=== PATIENT | male | born 1955 | race Caucasian/White ===

== ENCOUNTER → 2016-12-14 | Outpatient (CLI) | payer MEDICAID ==
[2016-12-14 11:42] LABS: Appearance,Urine Clear (Clear); Bilirubin,Urine Negative (Negative); Glucose,Urine (UA) Negative (Negative); Ketones,Urine Negative (Negative); Leukocyte Esterase,Urine Negative (Negative); Nitrite,Urine Negative (Negative); Protein,Urine Negative (Negative); Specific Gravity,Urine 1.008 (1.001-1.035); UA Billing (MACRO vs. MICRO) CHEM; Urobilinogen,Urine <2.0 mg/dL (<2.0)
[2016-12-14 11:47] LABS: Basophils % (A) 1 %; CH 31.9; CHCM 33.5; Eosinophils # (A) 0.1 k/uL (0-0.7); Eosinophils % (A) 2 %; HCT 48.3 % (39.0-53.0); HDW 2.44; HGB 15.7 gm/dL (13.0-17.5); Luc # (Auto) 0.11; Luc % (Auto) 2; Lymphocytes # (A) 1.7 k/uL (1.0-4.8); Lymphocytes % (A) 32 %; MCH 31.2 pg (25.0-35.0); MCHC 32.6 g/dL (31.0-37.0); MCV 95.7 fL (80.0-100.0); Mean Platelet Volume 6.9; Monocytes # (A) 0.3 k/uL (0-1.0); Monocytes % (A) 6 %; Neutrophils # (A) 3.2 k/uL (1.3-7.7); Neutrophils % (A) 58 %; RBC 5.05 m/uL (4.30-5.90); RDW 12.7 % (11.5-15.5); WBC 5.5 k/uL (3.8-10.6); WBC (Perox) 5.72
[2016-12-14 12:12] LABS: Anion Gap 8 mmol/L; Blood Urea Nitrogen 16 mg/dL (9-20); Calcium 9.5 mg/dL (8.4-10.2); Carbon Dioxide 27 mmol/L (22-30); Chloride 106 mmol/L (98-107); Glucose 100 mg/dL (74-99); Iron 98 ug/dL (49-181); Magnesium 2.1 mg/dL (1.6-2.3); Non-African American GFR(MDRD) >60 (>60 ml/min/1.73 sqM); Phosphorous 3.3 mg/dL (2.5-4.5); Potassium 4.7 mmol/L (3.5-5.1); Sodium 141 mmol/L (137-145); Uric Acid 6.3 mg/dL (3.5-8.5)
[2016-12-14 12:15] LABS: Creatinine,Urine Random 65.1 mg/dL
[2016-12-14 12:21] LABS: % Iron Saturation 32.9 % (20-50); Total Iron Binding Capacity 298 ug/dL (261-462)
== END | disposition home or self-care (01) ==
LOC: LABWHC1 11:13
PROVIDERS: ATTEND Internal Medicine Nephrology
DX: R80.9 Proteinuria, unspecified (principal); D64.9 Anemia, unspecified; E55.9 Vitamin D deficiency, unspecified; E21.3 Hyperparathyroidism, unspecified; M10.9 Gout, unspecified; N39.0 Urinary tract infection, site not specified
CPT/HCPCS: 36415; 80048; 81003; 81050; 82306; 82570; 82728; 83540; 83550; 83735; 83970; 84100; 84156; 84550; 85025

== ENCOUNTER → 2017-12-13 | Outpatient (CLI) | payer MEDICAID ==
[2017-12-13 11:17] LABS: Appearance,Urine Clear (Clear); Bilirubin,Urine Negative (Negative); Blood,Urine Negative (Negative); Color,Urine Yellow; Glucose,Urine (UA) Negative (Negative); Ketones,Urine Trace (Negative); Leukocyte Esterase,Urine Negative (Negative); Nitrite,Urine Negative (Negative); Protein,Urine Negative (Negative); Specific Gravity,Urine 1.019 (1.001-1.035); Urobilinogen,Urine <2.0 mg/dL (<2.0)
[2017-12-13 11:22] LABS: Basophils # (A) 0.1 k/uL (0-0.2); Basophils % (A) 1 %; Eosinophils # (A) 0.2 k/uL (0-0.7); Eosinophils % (A) 3 %; HCT 49.1 % (39.0-53.0); HGB 16.4 gm/dL (13.0-17.5); Lymphocytes # (A) 2.2 k/uL (1.0-4.8); Lymphocytes % (A) 37 %; MCHC 33.5 g/dL (31.0-37.0); MCV 92.8 fL (80.0-100.0); Mean Platelet Volume 6.7; Monocytes # (A) 0.3 k/uL (0-1.0); Monocytes % (A) 6 %; Neutrophils % (A) 52 %; Platelet Count 204 k/uL (150-450); RBC 5.29 m/uL (4.30-5.90); RDW 13.8 % (11.5-15.5); WBC 5.9 k/uL (3.8-10.6)
[2017-12-13 11:50] LABS: Albumin 4.3 g/dL (3.5-5.0); Anion Gap 12 mmol/L; Blood Urea Nitrogen 19 mg/dL (9-20); Calcium 9.4 mg/dL (8.4-10.2); Carbon Dioxide 26 mmol/L (22-30); Chloride 103 mmol/L (98-107); Glucose 101 mg/dL (74-99); Magnesium 2.1 mg/dL (1.6-2.3); Potassium 4.9 mmol/L (3.5-5.1); Sodium 141 mmol/L (137-145)
[2017-12-13 13:19] LABS: Collection Time,Urine 24 hrs; Total Volume 24 Hour,Urine 1250 mls (800-1800)
[2017-12-13 13:41] LABS: Total Protein 24 Hour,Urine 113 mg/24hr (42.0-225.0)
[2017-12-13 16:57] LABS: Vitamin D 25 Hydroxy 38.9 ng/mL (30.0-100.0)
[2017-12-13 17:08] LABS: Parathyroid Hormone Intact 54.2 pg/mL (14.0-72.0)
[2017-12-13 17:27] LABS: DNA Double-Stranded NEGATIVE (NEGATIVE)
[2017-12-13 18:19] LABS: Hepatitis C IgG Antibody Non-Reactive (Non-Reactive)
[2017-12-16 15:04] LABS: C-ANCA <1:20 Titer (<1:20); P-ANCA <1:20 Titer (<1:20)
[2017-12-17 12:27] LABS: Albumin 4.08 g/dL (3.80-4.90); Gamma Globulin 0.69 g/dL (0.70-1.50); Protein, Total 6.3 g/dL (6.2-8.2)
== END | disposition home or self-care (01) ==
LOC: LABWHC1 10:39
PROVIDERS: ATTEND Internal Medicine Nephrology
DX: N39.0 Urinary tract infection, site not specified (principal); M10.9 Gout, unspecified; E83.39 Other disorders of phosphorus metabolism; R80.9 Proteinuria, unspecified; K75.9 Inflammatory liver disease, unspecified; N18.2 Chronic kidney disease, stage 2 (mild)
CPT/HCPCS: 36415; 80048; 81003; 81050; 82040; 82306; 82728; 83516; 83540; 83550; 83735; 83970; 84100; 84156; 84165; 84550; 85025; 86038; 86160; 86162; 86225; 86255; 86335; 86803; 87340

== ENCOUNTER → 2018-06-24 | Outpatient (CLI) | payer MEDICAID ==
[2018-06-24 12:09] LABS: Basophils % (A) 1 %; Eosinophils # (A) 0.2 k/uL (0-0.7); Eosinophils % (A) 3 %; HCT 49.5 % (39.0-53.0); HGB 16.2 gm/dL (13.0-17.5); Lymphocytes % (A) 30 %; MCH 30.5 pg (25.0-35.0); MCHC 32.8 g/dL (31.0-37.0); Mean Platelet Volume 6.5; Monocytes # (A) 0.4 k/uL (0-1.0); Monocytes % (A) 6 %; Neutrophils % (A) 60 %; Platelet Count 226 k/uL (150-450); RBC 5.32 m/uL (4.30-5.90); RDW 12.7 % (11.5-15.5); WBC 6.7 k/uL (3.8-10.6)
[2018-06-24 13:17] LABS: Appearance,Urine Clear (Clear); Bilirubin,Urine Negative (Negative); Blood,Urine Negative (Negative); Color,Urine Light Yellow; Glucose,Urine (UA) Negative (Negative); Ketones,Urine Negative (Negative); Leukocyte Esterase,Urine Negative (Negative); Nitrite,Urine Negative (Negative); Protein,Urine Negative (Negative); Specific Gravity,Urine 1.006 (1.001-1.035); Urobilinogen,Urine <2.0 mg/dL (<2.0)
[2018-06-24 16:24] LABS: Albumin 4.5 g/dL (3.80-4.90); Anion Gap 6.2 mmol/L (4.00-12.00); Calcium 9.2 mg/dL (8.7-10.3); Carbon Dioxide 27.8 mmol/L (21.6-31.8); Globulin 1.5 g/dL (2.1-3.7); LDL Cholesterol,Calculated 124.2 mg/dL (0.0-131.0); Potassium 4.5 mmol/L (3.5-5.5); Total Bilirubin 0.5 mg/dL (0.2-1.2); VLDL Calculation 11.8 mg/dL (5.00-40.00)
[2018-06-24 16:33] LABS: T4, Free (Free Thyroxine) 1.2 ng/dL (0.80-1.80)
[2018-06-24 18:57] LABS: Hemoglobin A1C 5.6 % (4.0-6.0)
== END | disposition home or self-care (01) ==
LOC: LABWHC1 11:11
PROVIDERS: ATTEND Internal Medicine Geriatric Medicine
DX: Z00.00 Encounter for general adult medical examination without abnormal findings (principal)
CPT/HCPCS: 36415; 80053; 80061; 81003; 83036; 84153; 84439; 84443; 85025

== ENCOUNTER → 2019-03-05 | Outpatient (CLI) | payer MEDICARE ==
[2019-03-05 11:57] LABS: Basophils % (A) 1 %; Eosinophils # (A) 0.2 k/uL (0-0.7); Eosinophils % (A) 3 %; HCT 48.9 % (39.0-53.0); HGB 16.1 gm/dL (13.0-17.5); Lymphocytes # (A) 2.1 k/uL (1.0-4.8); Lymphocytes % (A) 36 %; MCH 30.5 pg (25.0-35.0); MCHC 32.9 g/dL (31.0-37.0); MCV 92.7 fL (80.0-100.0); Mean Platelet Volume 6.5; Monocytes # (A) 0.4 k/uL (0-1.0); Monocytes % (A) 7 %; Neutrophils # (A) 3.1 k/uL (1.3-7.7); Neutrophils % (A) 53 %; Platelet Count 211 k/uL (150-450); RBC 5.27 m/uL (4.30-5.90); WBC 5.8 k/uL (3.8-10.6)
[2019-03-05 12:31] LABS: Appearance,Urine Clear (Clear); Bilirubin,Urine Negative (Negative); Blood,Urine Negative (Negative); Color,Urine Yellow; Glucose,Urine (UA) Negative (Negative); Ketones,Urine 1+ (Negative); Leukocyte Esterase,Urine Negative (Negative); Nitrite,Urine Negative (Negative); PH, Urine 6.5 (5.0-8.0); Protein,Urine Negative (Negative); Specific Gravity,Urine 1.019 (1.001-1.035); Urobilinogen,Urine <2.0 mg/dL (<2.0)
[2019-03-05 15:42] LABS: African American GFR (CKD) 91.1 (60.0-200.0); Albumin 4.4 g/dL (3.80-4.90); Albumin/Globulin Ratio 2.75 (1.60-3.17); Anion Gap 9.6 mmol/L (4.00-12.00); Calcium 9.2 mg/dL (8.7-10.3); Carbon Dioxide 24.4 mmol/L (21.6-31.8); Globulin 1.6 g/dL (1.6-3.3); LDL Cholesterol,Calculated 137.8 mg/dL (0.0-131.0); Potassium 4.4 mmol/L (3.5-5.5); Total Bilirubin 1.1 mg/dL (0.3-1.2); VLDL Calculation 10.2 mg/dL (5.00-40.00)
[2019-03-05 19:51] LABS: Hemoglobin A1C 5.3 % (4.0-6.0)
== END | disposition home or self-care (01) ==
LOC: LABWHC1 11:07
PROVIDERS: ATTEND Internal Medicine Geriatric Medicine
DX: Z00.00 Encounter for general adult medical examination without abnormal findings (principal); I10 Essential (primary) hypertension; R73.9 Hyperglycemia, unspecified; R80.9 Proteinuria, unspecified
CPT/HCPCS: 36415; 80053; 80061; 81003; 83036; 84436; 84443; 85025

== ENCOUNTER → 2020-01-06 | Outpatient (CLI) | payer MEDICARE ==
--- NOTE | 2020-01-06 13:06 | XR ---
EXAMINATION TYPE: XR shoulder complete LT DATE OF EXAM: 01/06/2020 CLINICAL HISTORY: pain COMPARISON: NONE TECHNIQUE: Three views of the left shoulder are obtained. FINDINGS: There is no acute fracture/dislocation evident. The acromioclavicular and glenohumeral vika int spaces appear within normal limits. The visualized ribs are intact and unremarkable. IMPRESSION: 1. There is no acute fracture or dislocation. ICD 10 NO FRACTURE, INITIAL EVALUATION
== END | disposition home or self-care (01) ==
LOC: RADXRMAIN 12:32
PROVIDERS: ATTEND Internal Medicine Geriatric Medicine
DX: M25.512 Pain in left shoulder (principal)

== ENCOUNTER → 2020-05-17 | Outpatient (CLI) | payer MEDICARE ==
[2020-05-17 15:28] LABS: HCT 52.7 % (39.0-53.0); HGB 17.4 gm/dL (13.0-17.5); MCH 31.8 pg (25.0-35.0); MCV 96.2 fL (80.0-100.0); Mean Platelet Volume 6.7; Platelet Count 232 k/uL (150-450); RBC 5.48 m/uL (4.30-5.90); RDW 12.8 % (11.5-15.5); WBC 8.9 k/uL (3.8-10.6)
[2020-05-17 16:52] LABS: Appearance,Urine Clear (Clear); Bilirubin,Urine Negative (Negative); Blood,Urine Negative (Negative); Color,Urine Light Yellow; Glucose,Urine (UA) Negative (Negative); Ketones,Urine Negative (Negative); Leukocyte Esterase,Urine Negative (Negative); Nitrite,Urine Negative (Negative); Protein,Urine Negative (Negative); Specific Gravity,Urine 1.007 (1.001-1.035); Urobilinogen,Urine <2.0 mg/dL (<2.0)
[2020-05-18 02:59] LABS: African American GFR (CKD) 80.6 (60.0-200.0); Albumin 4.6 g/dL (3.80-4.90); Albumin/Globulin Ratio 2.19 (1.60-3.17); Anion Gap 11.2 mmol/L (4.00-12.00); BUN/Creat Ratio 15.45 Ratio (12.00-20.00); Calcium 9.8 mg/dL (8.7-10.3); Carbon Dioxide 25.8 mmol/L (21.6-31.8); Chol/HDL Ratio 5.07; Globulin 2.1 g/dL (1.6-3.3); LDL Cholesterol,Calculated 218.8 mg/dL (0.0-131.0); Non-African American GFR(CKD) 69.6 (60.0-200.0); Potassium 4.8 mmol/L (3.5-5.5); Total Bilirubin 0.8 mg/dL (0.2-1.2); Total Protein 6.7 g/dL (6.2-8.2); VLDL Calculation 17.2 mg/dL (5.00-40.00)
[2020-05-18 03:08] LABS: Prostate Specific Antigen 4.8 ng/mL (0.0-4.5)
== END | disposition home or self-care (01) ==
LOC: LABWHC1 14:55
PROVIDERS: ATTEND Internal Medicine Geriatric Medicine
DX: E78.5 Hyperlipidemia, unspecified (principal); R80.9 Proteinuria, unspecified; N40.3 Nodular prostate with lower urinary tract symptoms; M79.10 Myalgia, unspecified site
CPT/HCPCS: 36415; 80053; 80061; 81003; 84153; 85027

== ENCOUNTER → 2020-11-22 | Outpatient (CLI) | payer MEDICARE ==
[2020-11-23 00:34] LABS: African American GFR (CKD) 80.6 (60.0-200.0); Albumin 4.8 g/dL (3.80-4.90); Albumin/Globulin Ratio 2.67 (1.60-3.17); Anion Gap 8.9 mmol/L (4.00-12.00); BUN/Creat Ratio 15.45 Ratio (12.00-20.00); Calcium 9.6 mg/dL (8.7-10.3); Carbon Dioxide 25.1 mmol/L (21.6-31.8); Chol/HDL Ratio 3.69; Globulin 1.8 g/dL (1.6-3.3); LDL Cholesterol,Calculated 133.4 mg/dL (0.0-131.0); Non-African American GFR(CKD) 69.6 (60.0-200.0); Potassium 4.6 mmol/L (3.5-5.5); Total Bilirubin 0.8 mg/dL (0.3-1.2); Total Protein 6.6 g/dL (6.2-8.2); VLDL Calculation 14.6 mg/dL (5.00-40.00)
== END | disposition home or self-care (01) ==
LOC: LABWHC1 13:16
PROVIDERS: ATTEND Internal Medicine Geriatric Medicine
DX: E78.2 Mixed hyperlipidemia (principal); I10 Essential (primary) hypertension
CPT/HCPCS: 36415; 80053; 80061

== ENCOUNTER → 2021-05-30 | Outpatient (CLI) | payer MEDICARE ==
[2021-05-30 18:12] LABS: Basophils # (A) 0.04 X 10*3/uL (0.00-0.10); Basophils % (A) 0.5 %; Eosinophils # (A) 0.17 X 10*3/uL (0.04-0.35); Eosinophils % (A) 2.1 %; HCT 49.6 % (39.6-50.0); HGB 16.4 g/dL (13.0-17.0); Lymphocytes # (A) 2.99 X 10*3/uL (0.90-5.00); Lymphocytes % (A) 37.6 %; MCH 31.1 pg (27.0-32.0); MCHC 33.1 g/dL (32.0-37.0); MCV 94.1 fL (80.0-97.0); Mean Platelet Volume 9.7 fL (9.5-12.2); Monocytes # (A) 0.77 X 10*3/uL (0.20-1.00); Monocytes % (A) 9.7 %; Neutrophils # (A) 3.96 X 10*3/uL (1.80-7.70); Neutrophils % (A) 49.7 %; Platelet Count 240 X 10*3/uL (140-440); RBC 5.27 X 10*6/uL (4.40-5.60); RDW 12.4 % (11.5-14.5); WBC 7.96 X 10*3/uL (4.50-10.00)
[2021-05-31 02:15] LABS: VLDL Calculation 13.92 mg/dL (5.00-40.00)
[2021-05-31 04:09] LABS: ALT 22 U/L (10-49); AST 18 U/L (14-35); Albumin 4.7 g/dL (3.8-4.9); Albumin/Globulin Ratio 2.14 (1.60-3.17); Alkaline Phosphatase 64 U/L (41-126); BUN/Creat Ratio 15.32 Ratio (12.00-20.00); Blood Urea Nitrogen 16.7 mg/dL (9.0-27.0); Calcium 9.8 mg/dL (8.7-10.3); Carbon Dioxide 20.9 mmol/L (21.6-31.8); Chloride 104 mmol/L (96-109); Chol/HDL Ratio 4.04 Ratio; Globulin 2.2 g/dL (1.6-3.3); Glucose 98 mg/dL (70-110); LDL Cholesterol,Calculated 146.4 mg/dL (0.0-131.0); Non-African American GFR(CKD) 69.9 (60.0-200.0); Potassium 4.7 mmol/L (3.5-5.5); Sodium 142 mmol/L (135-145); Total Protein 6.8 g/dL (6.2-8.2)
== END | disposition home or self-care (01) ==
LOC: LABWHC1 13:03
PROVIDERS: ATTEND Internal Medicine Geriatric Medicine
DX: N40.0 Benign prostatic hyperplasia without lower urinary tract symptoms (principal); R79.9 Abnormal finding of blood chemistry, unspecified; R80.9 Proteinuria, unspecified
CPT/HCPCS: 36415; 80053; 80061; 83036; 84153; 84443; 85025

== ENCOUNTER → 2021-11-29 | Outpatient (CLI) | payer MEDICARE ==
[2021-11-29 18:17] LABS: ALT 21 U/L (10-49); AST 20 U/L (14-35); African American GFR (CKD) 103.5 (60.0-200.0); Albumin 4.3 g/dL (3.8-4.9); Albumin/Globulin Ratio 1.87 (1.60-3.17); Alkaline Phosphatase 51 U/L (41-126); BUN/Creat Ratio 14.25 Ratio (12.00-20.00); Blood Urea Nitrogen 12.2 mg/dL (9.0-27.0); Calcium 9.3 mg/dL (8.7-10.3); Carbon Dioxide 25.4 mmol/L (20.0-27.5); Chloride 105 mmol/L (96-109); Creatine Kinase 56 U/L (35-257); Globulin 2.3 g/dL (1.6-3.3); Glucose 103 mg/dL (70-110); LDL Cholesterol,Calculated 114.9 mg/dL (0.0-131.0); Non-African American GFR(CKD) 89.3 (60.0-200.0); Potassium 4.5 mmol/L (3.5-5.5); Sodium 139 mmol/L (135-145); Total Protein 6.6 g/dL (6.2-8.2)
[2021-11-29 18:53] LABS: Appearance,Urine Clear (Clear); Bilirubin,Urine Negative (Negative); Blood,Urine Negative (Negative); Color,Urine Yellow (Yellow); Ketones,Urine Negative (Negative); Nitrite,Urine Negative (Negative); Specific Gravity,Urine 1.009 (1.001-1.030); Urobilinogen,Urine 0.2 (0.2,1.0)
== END | disposition home or self-care (01) ==
LOC: LABWHC1 11:33
PROVIDERS: ATTEND Internal Medicine Geriatric Medicine
DX: E78.2 Mixed hyperlipidemia (principal); R80.9 Proteinuria, unspecified
CPT/HCPCS: 36415; 80053; 80061; 81003; 82550

== ENCOUNTER → 2022-04-02 | Outpatient (CLI) | payer MEDICARE | END | disposition home or self-care (01) | LOC: LABWHC1 15:22 | PROVIDERS: ATTEND Urology | DX: C61 Malignant neoplasm of prostate (principal) | CPT/HCPCS: 36415; 84153 ==

== ENCOUNTER → 2022-05-31 | Outpatient (CLI) | payer MEDICARE ==
[2022-05-31 18:14] LABS: Basophils # (A) 0.05 X 10*3/uL (0.00-0.10); Basophils % (A) 0.6 %; Eosinophils # (A) 0.18 X 10*3/uL (0.04-0.35); Eosinophils % (A) 2.3 %; HCT 47.4 % (39.6-50.0); HGB 15.8 g/dL (13.0-17.0); Immature Grans, Automated 0.5 %; Lymphocytes # (A) 2.56 X 10*3/uL (0.90-5.00); Lymphocytes % (A) 32.5 %; MCH 31.2 pg (27.0-32.0); MCHC 33.3 g/dL (32.0-37.0); MCV 93.5 fL (80.0-97.0); Mean Platelet Volume 9.4 fL (9.5-12.2); Monocytes % (A) 7.6 %; NRBC Per 100 WBC 0 /100 WBCS (0.0-0.0); Neutrophils # (A) 4.45 X 10*3/uL (1.80-7.70); Neutrophils % (A) 56.5 %; Platelet Count 233 X 10*3/uL (140-440); RBC 5.07 X 10*6/uL (4.40-5.60); RDW 12.6 % (11.5-14.5); WBC 7.88 X 10*3/uL (4.50-10.00)
[2022-05-31 18:18] LABS: ALT 18 U/L (10-49); AST 17 U/L (14-35); African American GFR (CKD) 85.1 (60.0-200.0); Albumin 4.5 g/dL (3.8-4.9); Albumin/Globulin Ratio 2.01 (1.60-3.17); Alkaline Phosphatase 56 U/L (41-126); BUN/Creat Ratio 12.31 Ratio (12.00-20.00); Blood Urea Nitrogen 12.8 mg/dL (9.0-27.0); Calcium 9.3 mg/dL (8.7-10.3); Carbon Dioxide 25.7 mmol/L (20.0-27.5); Chloride 103 mmol/L (96-109); Chol/HDL Ratio 3.85 Ratio; Creatine Kinase 64 U/L (35-257); Globulin 2.3 g/dL (1.6-3.3); Glucose 90 mg/dL (70-110); LDL Cholesterol,Calculated 113.1 mg/dL (0.0-131.0); Non-African American GFR(CKD) 73.4 (60.0-200.0); Potassium 4.4 mmol/L (3.5-5.5); Sodium 143 mmol/L (135-145); Total Protein 6.8 g/dL (6.2-8.2)
== END | disposition home or self-care (01) ==
LOC: LABWHC1 14:13
PROVIDERS: ATTEND Internal Medicine Geriatric Medicine
DX: Z00.00 Encounter for general adult medical examination without abnormal findings (principal); E78.2 Mixed hyperlipidemia; R73.9 Hyperglycemia, unspecified
CPT/HCPCS: 36415; 80053; 80061; 82550; 83036; 85025

== ENCOUNTER → 2022-10-02 | Outpatient (CLI) | payer MEDICARE ==
[2022-10-02 18:38] LABS: Basophils # (A) 0.05 X 10*3/uL (0.00-0.10); Basophils % (A) 0.7 %; Eosinophils # (A) 0.19 X 10*3/uL (0.04-0.35); Eosinophils % (A) 2.6 %; HCT 49.6 % (39.6-50.0); HGB 16.5 g/dL (13.0-17.0); Immature Grans, Automated 0.3 %; Lymphocytes # (A) 2.78 X 10*3/uL (0.90-5.00); Lymphocytes % (A) 37.5 %; MCHC 33.3 g/dL (32.0-37.0); MCV 93.2 fL (80.0-97.0); Monocytes # (A) 0.62 X 10*3/uL (0.20-1.00); Monocytes % (A) 8.4 %; NRBC Per 100 WBC 0 /100 WBCS (0.0-0.0); Neutrophils # (A) 3.76 X 10*3/uL (1.80-7.70); Neutrophils % (A) 50.5 %; Platelet Count 218 X 10*3/uL (140-440); RBC 5.32 X 10*6/uL (4.40-5.60); RDW 12.7 % (11.5-14.5); WBC 7.42 X 10*3/uL (4.50-10.00)
[2022-10-02 18:39] LABS: ALT 30 U/L (10-49); AST 19 U/L (14-35); African American GFR (CKD) 84.1 (60.0-200.0); Albumin 4.5 g/dL (3.8-4.9); Albumin/Globulin Ratio 2.19 (1.60-3.17); Alkaline Phosphatase 54 U/L (41-126); Blood Urea Nitrogen 12.7 mg/dL (9.0-27.0); Calcium 9.4 mg/dL (8.7-10.3); Carbon Dioxide 27.7 mmol/L (20.0-27.5); Chloride 104 mmol/L (96-109); Chol/HDL Ratio 3.62 Ratio; Creatine Kinase 51 U/L (35-257); Globulin 2.1 g/dL (1.6-3.3); Glucose 101 mg/dL (70-110); LDL Cholesterol,Calculated 120.3 mg/dL (0.0-131.0); Non-African American GFR(CKD) 72.6 (60.0-200.0); Potassium 4.4 mmol/L (3.5-5.5); Sodium 140 mmol/L (135-145); Total Protein 6.5 g/dL (6.2-8.2); VLDL Calculation 17.22 mg/dL (5.00-40.00)
[2022-10-02 20:18] LABS: Appearance,Urine Clear (Clear); Bilirubin,Urine Negative (Negative); Blood,Urine Negative (Negative); Color,Urine Yellow (Yellow); Ketones,Urine Negative (Negative); Nitrite,Urine Negative (Negative); PH, Urine 6.5 (5.0-8.0); Specific Gravity,Urine 1.013 (1.001-1.030); Urobilinogen,Urine 0.2 (0.2,1.0)
[2022-10-02 20:33] LABS: Bacteria,Urine None Seen /HPF (None Seen)
== END | disposition home or self-care (01) ==
LOC: LABWHC1 11:45
PROVIDERS: ATTEND Urology
DX: Z00.00 Encounter for general adult medical examination without abnormal findings (principal); C61 Malignant neoplasm of prostate; E78.2 Mixed hyperlipidemia; R73.9 Hyperglycemia, unspecified; R80.9 Proteinuria, unspecified
CPT/HCPCS: 36415; 80053; 80061; 81001; 82550; 83036; 84153; 84443; 85025

== ENCOUNTER → 2023-05-20 | Outpatient (CLI) | payer MEDICARE ==
[2023-05-20 21:47] LABS: Basophils # (A) 0.05 X 10*3/uL (0.00-0.10); Basophils % (A) 0.7 %; Eosinophils # (A) 0.35 X 10*3/uL (0.04-0.35); Eosinophils % (A) 5.1 %; HCT 48.6 % (39.6-50.0); HGB 16.4 d/dL (13.0-17.0); Lymphocytes # (A) 2.53 X 10*3/uL (0.90-5.00); Lymphocytes % (A) 36.8 %; MCH 32.1 pg (27.0-32.0); MCHC 33.7 d/dL (32.0-37.0); MCV 95.1 FL (80.0-97.0); Mean Platelet Volume 10.1 FL (9.5-12.2); Monocytes # (A) 0.55 X 10*3/uL (0.20-1.00); NRBC Per 100 WBC 0 X 10*3/uL (0.00-0.01); Neutrophils # (A) 3.37 X 10*3/uL (1.80-7.70); Platelet Count 241 X 10*3/uL (140-440); RBC 5.11 X 10*6/uL (4.40-5.60); WBC 6.88 X 10*3/uL (4.50-10.00)
[2023-05-20 22:24] LABS: ALT 22 U/L (10-49); AST 18 U/L (14-35); Albumin 4.3 d/dL (3.8-4.9); Albumin/Globulin Ratio 2.05 Ratio (1.60-3.17); Alkaline Phosphatase 64 U/L (41-126); BUN/Creat Ratio 13.18 Ratio (12.00-20.00); Blood Urea Nitrogen 14.5 mg/dL (9.0-27.0); Calcium 9.7 mg/dL (8.7-10.3); Carbon Dioxide 25.7 mmol/L (21.6-31.8); Chloride 103 mmol/L (96-109); Chol/HDL Ratio 3.18 Ratio; Globulin 2.1 d/dL (1.6-3.3); Glucose 98 mg/dL (70-110); LDL Cholesterol,Calculated 104.3 mg/dL (0.0-131.0); Potassium 4.6 mmol/L (3.5-5.5); Prostate Specific Antigen 7.97 ng/mL (0.000-4.500); Sodium 141 mmol/L (135-145); Total Bilirubin 0.7 mg/dL (0.3-1.2); Total Protein 6.4 d/dL (6.2-8.2); VLDL Calculation 11.58 mg/dL (5.00-40.00)
== END | disposition home or self-care (01) ==
LOC: LABWHC1 10:44
PROVIDERS: ATTEND Internal Medicine Geriatric Medicine
DX: Z00.00 Encounter for general adult medical examination without abnormal findings (principal); C61 Malignant neoplasm of prostate; E78.2 Mixed hyperlipidemia; R73.9 Hyperglycemia, unspecified
CPT/HCPCS: 36415; 80053; 80061; 83036; 84153; 84443; 85025

== ENCOUNTER → 2023-10-29 | Outpatient (CLI) | payer MEDICARE ==
[2023-10-29 16:21] LABS: Blood Urea Nitrogen 15.4 mg/dL (9.0-27.0); Chol/HDL Ratio 3.49 Ratio; Creatine Kinase 72 U/L (35-257); Glucose 101 mg/dL (70-110); VLDL Calculation 14.46 mg/dL (5.00-40.00)
[2023-10-29 16:22] LABS: ALT 26 U/L (10-49); AST 16 U/L (14-35); Albumin 4.6 g/dL (3.8-4.9); Alkaline Phosphatase 54 U/L (41-126); Calcium 9.6 mg/dL (8.7-10.3); Carbon Dioxide 25.6 mmol/L (21.6-31.8); Chloride 104 mmol/L (96-109); Globulin 2.3 g/dL (1.6-3.3); Prostate Specific Antigen 4.87 ng/mL (0.000-4.500); Sodium 140 mmol/L (135-145); Total Bilirubin 0.7 mg/dL (0.3-1.2); Total Protein 6.9 g/dL (6.2-8.2)
== END | disposition home or self-care (01) ==
LOC: LABWHC1 13:19
PROVIDERS: ATTEND Urology
DX: C61 Malignant neoplasm of prostate (principal); E78.2 Mixed hyperlipidemia
CPT/HCPCS: 36415; 80053; 80061; 82550; 84153

== ENCOUNTER → 2023-11-30 | Outpatient (CLI) | payer MEDICARE ==
--- NOTE | 2023-11-30 10:26 | MR ---
EXAMINATION TYPE: MR Prostate wo/w con DATE OF EXAM: 11/30/2023 9:44 AM COMPARISON: None. CLINICAL INDICATION:Male, 68 years old with history of C61 MALIGNANT NEOPLASM OF PROSTATE; TECHNIQUE: Multi-planar, multi-sequence imaging of the pelvis is performed prior to and following the uncomplicated administration of bolus intravenous gadolinium. CONTRAST: 9.5 cc Gadavist. Interpretive Criteria: PI-RADS v2.1 SERUM PSA: 7.97 on 05/2023. 4.87 on 10/2023. SURGICAL PATHOLOGY: Positive by 08/22/2021 involving the right mid [place] 6, 3+3 FINDINGS: Prostatic dimensions: 5.8 x 7.7 x 5.0 cm. Ellipsoid Volume:116.92 (PSA density=0.07 ng/mL/mL) CENTRAL GLAND (Central and Transition Zones/CZ+TZ): Multiple bilateral, heterogenous appearing hypertrophic stromal nodules, without suspicious lesion. M edian lobe hypertrophy with protrusion into the base of the bladder. (PI-RADS 2) PERIPHERAL ZONE (PZ): Bilateral linear, indistinct wedgelike areas of low ADC, and low T2 signal, No evidence of masslike a bnormality, or localized perfusional hypervascularity, to further suggest a focus of clinically signi ficant prostate cancer. (PI-RADS 2) SEMINAL VESICLES (SV): Symmetric and unremarkable. PERIPROSTATIC TISSUES: Unremarkable. LYMPH NODES: No enlarged pelvic lymph node. REMAINING PELVIS: Bladder wall is within normal limits given distention. No abnormal free or organized intrapelvic fluid collection. No pathologic bowel dilation or mural thickening. No hernia visualized OSSEOUS STRUCTURES: No suspicious osseous abnormality. IMPRESSION: 1. No specific features for high-risk prostate cancer. Maximum PI-RADS score: 2. 2. Substantial BPH, estimated gland volume 116.92 mL. 3. No suspicious osseous lesion. No lymphadenopathy. No evidence of prostate adenocarcinoma involving the periprostatic tissues.
== END | disposition home or self-care (01) ==
LOC: RADMRIMAIN 08:27
PROVIDERS: ATTEND Urology
DX: N40.0 Benign prostatic hyperplasia without lower urinary tract symptoms (principal); C61 Malignant neoplasm of prostate
CPT/HCPCS: 72197; A9585

== ENCOUNTER → 2024-03-23 | Outpatient (CLI) | payer MEDICARE ==
[2024-03-23 15:29] LABS: Basophils # (A) 0.06 X 10*3/uL (0.00-0.10); Basophils % (A) 0.9 %; Eosinophils # (A) 0.29 X 10*3/uL (0.04-0.35); Eosinophils % (A) 4.2 %; HCT 50.8 % (39.6-50.0); HGB 17.1 g/dL (13.0-17.0); Lymphocytes % (A) 34.9 %; MCH 31.8 pg (27.0-32.0); MCHC 33.7 g/dL (32.0-37.0); MCV 94.6 FL (80.0-97.0); Monocytes # (A) 0.57 X 10*3/uL (0.20-1.00); Monocytes % (A) 8.3 %; NRBC Per 100 WBC 0 X 10*3/uL (0.00-0.01); Neutrophils # (A) 3.52 X 10*3/uL (1.80-7.70); Neutrophils % (A) 51.3 %; Platelet Count 203 X 10*3/uL (140-440); RBC 5.37 X 10*6/uL (4.40-5.60); RDW 12.7 % (11.5-14.5); WBC 6.87 X 10*3/uL (4.50-10.00)
[2024-03-23 15:51] LABS: ALT 20 U/L (10-49); AST 16 U/L (14-35); Albumin 4.4 g/dL (3.8-4.9); Alkaline Phosphatase 60 U/L (41-126); BUN/Creat Ratio 14.09 Ratio (12.00-20.00); Blood Urea Nitrogen 15.5 mg/dL (9.0-27.0); Calcium 9.5 mg/dL (8.7-10.3); Carbon Dioxide 26.7 mmol/L (21.6-31.8); Chloride 105 mmol/L (96-109); Globulin 2.2 g/dL (1.6-3.3); Glucose 113 mg/dL (70-110); LDL Cholesterol,Calculated 138.2 mg/dL (0.0-131.0); Potassium 5.1 mmol/L (3.5-5.5); Sodium 142 mmol/L (135-145); Total Bilirubin 0.5 mg/dL (0.3-1.2); Total Protein 6.6 g/dL (6.2-8.2); VLDL Calculation 11.98 mg/dL (5.00-40.00)
== END | disposition home or self-care (01) ==
LOC: LABWHC1 10:02
PROVIDERS: ATTEND Internal Medicine Geriatric Medicine
DX: I10 Essential (primary) hypertension (principal); R78.2 Finding of cocaine in blood; R73.9 Hyperglycemia, unspecified
CPT/HCPCS: 36415; 80053; 80061; 83036; 84443; 85025

== ENCOUNTER → 2024-05-21 | Outpatient (CLI) | payer MEDICARE | END | disposition home or self-care (01) | LOC: LABWHC1 14:40 | PROVIDERS: ATTEND Urology | DX: C61 Malignant neoplasm of prostate (principal) | CPT/HCPCS: 36415; 84153 ==

== ENCOUNTER → 2024-09-17 | Outpatient (CLI) | payer MEDICARE ==
[2024-09-17 15:00] LABS: Basophils # (A) 0.06 X 10*3/uL (0.00-0.10); Basophils % (A) 0.8 %; Eosinophils % (A) 4.1 %; HGB 16.5 g/dL (13.0-17.0); Lymphocytes # (A) 2.77 X 10*3/uL (0.90-5.00); Lymphocytes % (A) 38.2 %; MCH 30.8 pg (27.0-32.0); MCV 93.3 FL (80.0-97.0); Mean Platelet Volume 9.8 FL (9.5-12.2); Monocytes # (A) 0.51 X 10*3/uL (0.20-1.00); NRBC Per 100 WBC 0 X 10*3/uL (0.00-0.01); Neutrophils # (A) 3.58 X 10*3/uL (1.80-7.70); Neutrophils % (A) 49.5 %; Platelet Count 228 X 10*3/uL (140-440); RBC 5.36 X 10*6/uL (4.40-5.60); RDW 12.8 % (11.5-14.5); WBC 7.25 X 10*3/uL (4.50-10.00)
[2024-09-17 15:17] LABS: ALT 35 U/L (10-49); AST 22 U/L (14-35); Albumin 4.4 g/dL (3.8-4.9); Alkaline Phosphatase 59 U/L (41-126); Blood Urea Nitrogen 13.8 mg/dL (9.0-27.0); Calcium 9.5 mg/dL (8.7-10.3); Chloride 105 mmol/L (96-109); Chol/HDL Ratio 3.61 Ratio; Glucose 120 mg/dL (70-110); LDL Cholesterol,Calculated 116.9 mg/dL (0.0-131.0); Potassium 4.5 mmol/L (3.5-5.5); Sodium 142 mmol/L (135-145); Total Bilirubin 0.6 mg/dL (0.3-1.2); Total Protein 6.4 g/dL (6.2-8.2); Uric Acid 5.3 mg/dL (3.7-8.7)
[2024-09-17 20:23] LABS: Microalbumin Creatinine Ratio <12 mg/g Cr (0-30)
== END | disposition home or self-care (01) ==
LOC: LABWHC1 09:39
PROVIDERS: ATTEND Urology
DX: E78.2 Mixed hyperlipidemia (principal); R80.9 Proteinuria, unspecified; R73.9 Hyperglycemia, unspecified; C61 Malignant neoplasm of prostate
CPT/HCPCS: 36415; 80053; 80061; 82043; 82570; 83036; 84153; 84550; 85025